=== PATIENT | female | born 1930 | race Caucasian/White ===

== ENCOUNTER → 2016-11-18 | Outpatient (CLI) | payer OTHER | LOC: BHFA 08:45 | PROVIDERS: ATTEND Internal Medicine Cardiovascular Disease | DX: I48.91 Unspecified atrial fibrillation (principal); F03.90 Unspecified dementia, unspecified severity, without behavioral disturbance, psychotic disturbance, mood disturbance, and anxiety | CPT/HCPCS: 82607-90 ==

== ENCOUNTER → 2016-11-22 | Outpatient (CLI) | payer OTHER | LOC: BHFA 16:00 | PROVIDERS: ATTEND Internal Medicine | DX: I48.91 Unspecified atrial fibrillation (principal) ==

== ENCOUNTER → 2016-11-26 | Outpatient (CLI) | payer OTHER | LOC: BHFA 13:15 | PROVIDERS: ATTEND Internal Medicine Cardiovascular Disease | DX: I48.91 Unspecified atrial fibrillation (principal) ==

== ENCOUNTER 2017-10-17 15:11 | Observation (INO) | payer OTHER ==
--- NOTE | 2017-10-17 15:21 | CPEKG ---
Heart Rate: 120 RR Interval: 500 QRSD Interval: 74 QT Interval: 296 QTC Interval: 419 QRS [place]: -40 T Wave [place]: 208 EKG Severity - ABNORMAL ECG - EKG Impression: ATRIAL FIBRILLATION, V-RATE 80-156 EKG Impression: LEFT ANTERIOR FASCICULAR BLOCK EKG Impression: NONSPECIFIC REPOL ABNORMALITY, DIFFUSE LEADS Electronically Signed By: Yaneth Roy 17-Oct-2017 21:44:18
--- NOTE | 2017-10-17 15:25 | EDPHY ---
H & P HPI/ROS: CHIEF COMPLAINT: Rapid heart rate, unsteady gait Limitations: dementia, pt unable to provide any clinical hx HISTORY OF PRESENT ILLNESS: The patient is an 87 y/o female with dementia and atrial fibrillation arriving via EMS from [facility] for evaluation after a neighbor saw her stumbling around the apartment complex. EMS noted she was in rapid atrial fibrillation upon their arrival. She is unable to provide any history to me, but denies pain , dyspnea, difficulty walking, palpitations, rapid heart rate. It's unclear what her baseline mentation is, though EMS was told she lives independently. Demographic sheet that accompanied her shows history of heart and dementia and states she takes a daily baby aspirin. REVIEW OF SYSTEMS: unable to obtain. - Medical/Surgical History PMH: PMH includes: 1. Atrial fibrillation - aspirin 2. Cataracts 3. Dementia 4. Breast cancer - Social History Additional Social History: Lives at [facility] independently. Son is MDPOA, no living will. PCP: Dr. Emiliana Sahni - Physical Exam Exam: General Appearance: Alert, no distress Eyes: Pupils equal and round, no conjunctival pallor or injection ENT, Mouth: Mucous membranes moist Neck: Normal inspection Respiratory: Lungs are clear to auscultation Cardiovascular: Irregularly irregular tachycardic rate and rhythm Gastrointestinal: Abdomen is soft and non- tender Neurological: Alert, confused, nonfocal, unsteady gait requires assistance to walk Skin: Warm and dry, no rash Extremities: Nontender, no pedal edema Psychiatric: Mood and affect normal Constitutional: Initial Vital Signs Temperature (C) 36.5 C 10/17/17 15:11 Heart Rate 111 H 10/17/17 15:11 Respiratory Rate 14 10/17/17 15:11 Blood Pressure 132/78 H 10/17/17 15:11 O2 Sat (%) 92 10/17/17 15:11 O2 Delivery Mode Room Air Allergies/Adverse Reactions: No Known Allergies Allergy (Unverified 10/17/17 15:14) Home Medications: Medication Instructions Recorded Aspirin [Aspirin 81mg (*)] 81 mg PO DAILY 10/17/17 Diltiazem HCl [Diltiazem 24Hr Cd] 180 mg PO DAILY #30 cap.er.24h 10/18/17 Medical Decision Making - Diagnostics Imaging Results: Chest X-Ray 10/17/17 15:24 Impression: Cardiomegaly and pulmonary venous hypertension. No failure. Imaging: I viewed and interpreted images myself ED Course/Re-evaluation: This is an 87 y/o female with dementia who presents for evaluation of weakness and stumbling gait. History limited by patient's dementia, though she denies any complaints currently. Nonfocal neuro exam and rapid atrial fibrillation noted on monitor. Plan for IV, labs, EKG, chest x-ray. RN will attempt to contact patient's facility and [facility] for more information as well. The 12 lead EKG was interpreted by myself. Rapid atrial fibrillation rate 120, ST segment depression in leads V5 and V6. See hard copy and/or "tracemaster" electronic copy for interpretation. RN spoke with patient's son. He reports the patient uses nelson to steady herself at baseline, but today she was much more fatigued and had to sit down on her way back to her apartment. Mental status seems unchanged to him. He confirms her only medication is aspirin and she is not on any anticoagulants. Plan to treat rapid rate with 10mg IV Diltazem bolus and 125mg IV Diltazem drip. Chest x-ray: no pneumonia or CHF, cardiomegaly. Mildly elevated WBC at 14; no clinical evidence of infection, UA ordered. HR 90 -100 after Diltiazem, BP adequate. Consulted with hospitalist service. Dr. Shore accepts admission for atrial fibrillation with RVR. Pt remained stable throughout her ED stay. Critical Care Time: This pt utilized 35 minutes of critical care time by me exclusive of unbundled procedures. Kulwinder spent in obtaining history through EMS and family, ordering reviewed lab/CXR results, medication ordering, serial reassessments after IV Diltiazem and consultation. Organ at risk: heart. - Data Points Laboratory Results: Laboratory Results 10/17/17 15:15 10/17/17 15:15 Medications Given: Discontinued Medications Apixaban (Eliquis) 5 mg PO BID [facility] Stop: 04/15/18 20:59 Last Admin: 10/18/17 08:31 Dose: 5 mg Diltiazem HCl (Cardizem 25 Mg/5 Ml Vial) 10 mg IVP EDNOW ONE Stop: 10/17/17 15:47 Last Admin: 10/17/17 16:47 Dose: 10 mg Diltiazem HCl (Cardizem Er Q24hr) 120 mg PO DAILY [facility] Stop: 04/16/18 10:44 Last Admin: 10/18/17 12:04 Dose: 120 mg Diltiazem HCl 125 mg/ Dextrose 125 mls @ 0 mls/hr IV EDNOW ONE; As Directed PRN Reason: Protocol Stop: 10/17/17 15:47 Last Admin: 10/17/17 16:47 Dose: 125 mls Sodium Chloride (Ns) 500 mls @ 1,000 mls/hr IV EDNOW ONE PRN Reason: Protocol Stop: 10/17/17 16:19 Last Admin: 10/17/17 16:53 Dose: 500 mls Sodium Chloride (Ns) 500 mls @ 250 mls/hr IV ONCE ONE Stop: 10/17/17 19:32 Last Admin: 10/17/17 17:44 Dose: 500 mls Influenza Virus Vaccine Quadrival (Fluarix Quad [id number]) 0.5 ml IM .ONCE ONE Stop: 10/18/17 10:26 Last Admin: 10/18/17 12:26 Dose: Not Given Pneumococcal 13-Valent Conj Vacc (Prevnar 13 Syringe) 0.5 ml IM .ONCE ONE Stop: 10/18/17 10:26 Last Admin: 10/18/17 12:26 Dose: Not Given Departure - Departure Disposition: [facility] Acute Clinical Impression: Atrial fibrillation with RVR Condition: Fair Report Scribed for: Yaneth Roy Report Scribed by: Renetta Tobar Date of Report: 10/17/17 Time of Report: 15:25 Physician Review and Approval Statement: 10/17/17 15:25 Portions of this note were transcribed by a emergency medicine medical director. I personally performed a history, physical exam, medical decision making, and confirmed accuracy of information the transcribed note.
[2017-10-17 15:30] LABS: PLATELET COUNT 155 10^3/uL (150-400)
[2017-10-17 15:39] LABS: INR 0.97 (0.83-1.16); PROTIME(PATIENT) 13.1 SEC (12.0-15.0)
[2017-10-17] MEDS ORDERED: DILTIAZEM 25 MG/5 ML VIAL IVP ONE (15:46)
[2017-10-17] MEDS ORDERED: DILTIAZEM 125 MG in D5W 125 ML IV ONE (15:46)
[2017-10-17] MEDS ORDERED: NS 500 ML IV ONE ×2 (15:50→17:33)
[2017-10-17] MEDS ORDERED: DILTIAZEM 125 MG in D5W 125 ML IV SCH (17:30)
--- NOTE | 2017-10-17 18:12 | GHP ---
[f rep st] HISTORY AND PHYSICAL DATE OF ADMISSION: 10/17/2017 CHIEF COMPLAINT: Rapid atrial fibrillation. HISTORY OF PRESENT ILLNESS: This is an 87-year-old female who is a very poor historian, and was real ly unable to tell me anything for why she was here, presented to the emergency department after she w as noted to have unsteady gait and rapid heart rate. She arrived via EMS from [facility] after her neighbor saw her stumbling around her apartment. Patient denies any chest pain, shortness of breath, or palpitations. She denies any history of heart problems when I asked her, but she is also disorie nted to place and time. PAST MEDICAL HISTORY: Unobtainable, however, the ER report notes atrial fibrillation, cataracts, mem ory issues, breast cancer. PAST SURGICAL HISTORY: Unobtainable. SOCIAL HISTORY: The patient lives independently at [facility]. FAMILY HISTORY: Unobtainable. REVIEW OF SYSTEMS: Comprehensive 10-point review of systems was attempted; however, the patient is a n unreliable historian. PHYSICAL EXAMINATION: VITAL SIGNS: Blood pressure 126/65. Pulse was in the 140s during my exam. R espiratory rate 19. O2 sat 91% on room air. Temperature afebrile. GENERAL: No acute distress. HE AD: Normocephalic, atraumatic. EYES: PERRLA. Sclerae anicteric. MOUTH: Moist mucous membranes. NECK: Supple. No lymphadenopathy. CARDIOVASCULAR: Irregularly-irregular. S1, S2. Tachycardic. No JVD. No lower extremity edema. PULMONARY: Lungs are clear. No wheezes, rales, or rhonchi. AB DOMEN: Soft, nontender, nondistended. No guarding or rebound tenderness. Normoactive bowel sounds. EXTREMITIES: No clubbing or cyanosis. NEURO: Cranial nerves 2 through 12 grossly intact. She is following commands. SKIN: Clear. No rashes. DIAGNOSTICS: Chest x-ray, which I visualized and personally interpreted, showed cardiomegaly, with n o signs of overt heart failure. EKG which I visualized and personally interpreted shows atrial fibri llation, rate 120 beats per minute, the left anterior fascicular block, and diffuse nonspecific repol arization abnormalities. WBC is 14.1, hemoglobin 15.5, hematocrit 44.9, platelets 155. Sodium 141, potassium 4.3, chloride 10 0, BUN 29, creatinine 1, glucose 106. BNP was 7200. Troponin was negative. UA is pending. RPR marisol e in November of 2016 was nonreactive. ASSESSMENT AND PLAN: This is an 87-year-old female, presented from [facility] via emergency medical services after she was found to have an unsteady gait. Found to have: 1. Atrial fibrillation with rapid ventricular response. 2. Mild leukocytosis, without an obvious source of infection. 3. Elevated BNP, consistent with acute heart failure which is most likely diastolic, in the setting of atrial fibrillation with rapid ventricular response. 4. Suspected dementia, however, I have been unable to confirm this by her medical records versus acu te encephalopathy. PLAN: 1. Admit to telemetry. 2. We will start the patient on a diltiazem drip which will be titrated to a heart rate of less than 100. 3. We will start Eliquis. 4. Echocardiogram. 5. Cardiology consultation. 6. We will obtain a urinalysis to evaluate for signs of urinary tract infection. If this is negativ e, further evaluation for infection would be warranted given her overall clinical picture and leukocy tosis. /[id number]/MODL
[2017-10-17] MEDS: APIXABAN 5 MG TAB PO SCH (20:29)
[2017-10-18 03:49] LABS: PLATELET COUNT 127 10^3/uL (150-400)
[2017-10-18] MEDS: APIXABAN 5 MG TAB PO SCH (08:31)
--- NOTE | 2017-10-18 09:23 | ECHO ---
[email or web address] [address] [address] Main: [phone] Fax: Transthoracic Echocardiogram Name: ALONSO THOMAS MR#: [id number] Study Date: 10/18/2017 Study Time: 07:20 AM Date of : 1930 Age: 87 year(s) Height: 170.2 cm (67 in.) Weight: 68.04 kg (150 lb.) BSA: 1.79 m2 Gender: Female Examination: Echo Indication: Rapid afib with elevated bnp Image Quality: Contrast: Requested by: Kun Shore BP: / Heart Rate: Rhythm: Indication: Rapid afib with elevated bnp Procedure Staff Stencil Cutter Machine: Azul Sam RDCS Reading Physician: Kamar Gant Requesting Provider: Conclusions: Normal global systolic LV function. The ejection fraction is estimated to be 55-60 %. The left atrium is mildly to moderately dilated. The right atrium is mildly dilated. Mild to moderate aortic valve regurgitation. Mild tricuspid regurgitation is present. Mildly dilated ascending aorta measuring 4.1 cm. There is no previous echocardiogram for comparison. Measurements: Chambers Valvular Assessment AV/MV Valvular Assessment TV/PV Normal Normal Normal Name Value Range Name Value Range Name Value Range Ao Iona (MM): 3.8 cm (2.2 cm-3.7 AV Vmax: 1.19 m/s (1 m/s-1.7 TR Vmax: 2.51 mm/s ( - ) cm) m/s) TR PGmax: 25 mmHg ( - ) IVSd (2D): 1.0 cm (0.6 cm-1.1 AV maxP mmHg ( - ) syst. PAP: 30 mmHg ( - ) cm) AR (PHT): 495 ms ( - ) LVDd (2D): 5.4 cm (3.9 cm-5.3 MV E Vmax: 0.68 m/s ( - ) cm) LVDs (2D): 4.5 cm (2.1 cm-4 cm) LVPWd (2D): 0.9 cm ( - ) LVEF (MOD4): 49 % (>=55 %) EF Range: 55-60 % Continued Measurements: Chambers Valvular Assessment AV/MV Valvular Assessment TV/PV Name Value Name Value Name Value Patient: ALONSO THOMAS Study Date: 10/18/2017 Page 1 of 2 07:20 AM LADs: 4.1 cm MV E/E' Septal: 9.50 CVP (est.): 5 mmHg LADs Lon.2 cm MV E/E' Lateral: 7.70 LA Area: 24.7 cm2 AR Vmax: 4.80 cm/s Additional Vessels Name Value Ao Ascendin.1 cm Findings: Left Ventricle: Normal size left ventricle. No LV hypertrophy. Normal global systolic LV function. The ejection fraction is estimated to be 55-60 %. Right Ventricle: Normal size right ventricle. Left Atrium: The left atrium is mildly to moderately dilated. Right Atrium: The right atrium is mildly dilated. Mitral Valve: Mild mitral valve leaflet calcification is present. Mild mitral valve regurgitation is present. Aortic Valve: The aortic valve is normal in appearance and function. Mild to moderate aortic valve regurgitation. Tricuspid Valve: The tricuspid valve is normal in appearance and function. Mild tricuspid regurgitation is present. Pulmonic Valve: The pulmonic valve is normal in appearance and function. Aorta: The aorta is normal. Mildly dilated ascending aorta measuring 4.1 cm. Pericardium: No pericardial effusion. (No Signature Object) Patient: ALONSO THOMAS Study Date: 10/18/2017 Page 2 of 2 07:20 AM [id number]
[2017-10-18] MEDS ORDERED: FLU VACC QS 2017-18 (3YR+)/PF 0.5 ML SYR (FLUARIX QUAD) IM ONE (10:25)
[2017-10-18] MEDS ORDERED: PNEUMOC 13-VAL CONJ-DIP CRM/PF 0.5 ML SYR IM ONE (10:25)
[2017-10-18] MEDS ORDERED: DILTIAZEM CD 120 MG CAP PO SCH (10:45)
[2017-10-18 11:15] VITALS: BP 149/90
--- NOTE | 2017-10-18 12:34 | GCON ---
[f rep st] CONSULTATION CARDIOVASCULAR CONSULTATION DATE OF CONSULTATION: 10/18/2017 CHIEF COMPLAINT: Not known. HISTORY OF PRESENT ILLNESS: She is a woman who was admitted to the hospital with atrial fibrillation , with a rapid ventricular response. She was more confused than usual and was stumbling around where she lives at [facility]. She was brought to the emergency room and then admitted for this problem. She has a long history of dementia. She tells me now that she cannot remember why she is in the hosp ital. The records show she had been told years ago that she had atrial fibrillation, and she has bee n cared for with that with rate control. She has not been receiving antiarrhythmic drugs for rhythm control. At this point, she denies shortness of breath, chest pain, orthopnea, PND, dyspnea on exertion, jaw p ain, or arm pain. She has no new weakness. No new slurred speech. She is having no cranial neuropa osiel or complaints of difficulty with hearing or seeing at this time that are new. She has no heada bogdan, stiff neck, or sore throat. She has not had fever, chills, or cough. She has no nausea, vomiti ng, or diarrhea. She is not having arthralgias or hot swollen joints. She is having no hemoptysis. She is having no bleeding anywhere. She has no GI or complaints. She has been taking her medications, and she said she has been feeling fine and feels like she would like to go home. Her cardiac risk factors are negative for treated hypertension. However, she has blood pressures gregory t are significantly elevated in the hospital. Her cardiac risk factors are negative for diabetes guzman litus, hyperuricemia, smoking history, family history of premature coronary disease, obesity, dyslipi demia, or known coronary artery disease. FAMILY HISTORY: She tells me she has no family history of early coronary artery disease. People in her family have had trouble with coronary artery disease, but at advanced ages. REVIEW OF SYSTEMS: A 10-point review of systems negative except as noted above. The validity of the review of systems is difficult to assess because of her poor memory. SURGICAL HISTORY: Status post meniscectomy. Status post iridectomies. MEDICATIONS: Listed in the record. They show that she is taking aspirin, as well as multiple over-t he-counter medications. She takes aspirin at home. SOCIAL HISTORY: She tries to be very active at [facility]. She has a son who is involved in her ca re. She does not smoke. She does not drink significant amounts of alcohol. PHYSICAL EXAMINATION: VITAL SIGNS: Blood pressure 159/90. Earlier blood pressure 142/78. Her hear t rate when she came in was over 100. It is 75 now and irregularly irregular. She is afebrile. Sta tus post iridectomies. NECK: Supple. CARDIOVASCULAR: S1, S2. Systolic murmur at left sternal bor diana. No diastolic murmur. No S3 or S4. No rubs. Irregularly irregular. PULMONARY: Rhonchi bilat erally. No rales, wheezing, or dullness. ABDOMEN: Soft and nontender, without masses. EXTREMITIES : No significant edema. No tenderness. No calf tenderness. No calf swelling. SKIN: Age-related changes. PSYCHIATRIC: She is a very pleasant, comfortable lady, without anxiety or depression appar ent. NEUROLOGIC: She is demented. She is cooperative, and she is pleasant. LABORATORY: Chest x-ray shows some pulmonary hypertension, but no heart failure. Her white count wh en she came in was elevated at 14, with a neutrophil count of 84.9 and lymphs of 7.6. Now today, it is down to 8.42. Her hematocrit is 36.9; it was 44. Her platelet count is 127 today. Sodium 143, p otassium 3.8, chloride 108, CO2 25, BUN 23, creatinine 0.9. Troponins x3 have been negative. BNP wa s 7200. EKG shows AFib, with a rapid ventricular response. I have reviewed her old records, and her echocard iogram in the past showed normal LV systolic function, significant left atrial enlargement, moderate AI, and moderate TR. The ascending aorta was 4.1. Today's echocardiogram shows left atrium mildly t o moderately enlarged. EF is 55%. Fccn-ex-dnquabst AI and mild tricuspid regurgitation. The EKG sh ows atrial fibrillation, left anterior fascicular block, and nonspecific ST-T changes. ASSESSMENT AND PLAN: 1. Atrial fibrillation. 2. Dementia. 3. Possible hypertension. The patient's systolic blood pressures been elevated here. It is hard to believe she does not have h ypertension, but that can be watched as an outpatient to see if she definitively has it or not. Her CHADS-VASc score is either 3 if she has no hypertension or 4 if she has hypertension. If it is 4, robert colon has at least a 4% risk per year of a stroke and would benefit from full anticoagulation. However, in the past, she has seen Dr. Moon of the electrophysiology service, and the decision was made by the family that she did not want to take full anticoagulation, but rather just stick with aspirin alone. When I talked to the patient, that is what she wants to do today. She wants no new medications, raphael bonilla she feels quite well. Some of the notes say she was sort of stumbling about when she was at [facility], and she is demented, so I think there is definitely in her a danger associated with full antic oagulation for her. In light of that, I think we should accept the higher stroke risk and just use a spirin alone given the chances that she could have traumatic bleeding or other injuries. Also, she w ill be very confused about what is happening and her medication intake. Therefore, I would say to jayda olivares aspirin. In the past, Dr. Moon, has talked to the family about the risks and benefits of aspirin versus full anticoagulation, and they have chosen to stay with aspirin and accept the extra risk of s troke. She will continue to do that. Her heart rate is slowing down with some p.o. medication, and she is doing well. There is nothing to suggest that she has other significant pathology causing her rapid ventricular response right now, such as significant pulmonary disease, heart failure, or acute coronary syndrome. There is nothing to suggest pulmonary embolic disease. Her BNP is significantly elevated and yet, there is no congestive heart failure on her chest x-ray, and she is lying flat whil e I am examining her and having absolutely no problem. There are no other findings of fluid overload . Her pulses are full and equal. She is having absolutely no chest pain syndrome whatsoever, so we will follow her and see how she does. At this point in time, she is stabilizing for her heart rhythm. I have talked to the hospitalist, raphael bonilla we both feel that she is safe to be moved to the next level of care whenever that is available for her. That is what she tells me she is very eager to do, and she can be followed as an outpatient by Dr. Moon in our office. Thank you very much for asking us to see this patient. We will follow her with you while she is here . /[id number]/MODL
--- NOTE | 2017-10-18 13:49 | PDIAF ---
- Diagnosis Diagnosis: afib Code Status: Full Code - Medication Management Discharge Medications: Medications to Continue on Transfer Aspirin [Aspirin 81mg (*)] 81 mg PO DAILY 10/17/17 [Last Taken 10/17/17] Diltiazem HCl [Diltiazem 24Hr Cd] 180 mg PO DAILY #30 cap.er.24h 10/18/17 [Last Taken Unknown] Discharge Medications: Refer to the Discharge Home Medication list for PRN reason. - Orders Services needed: Home Care, Registered Nurse, Physical Therapy, Occupational Therapy Home Care Face to Face: I certify that this patient was under my care and that I had the required [id number] encounter meeting the encounter requirements on the discharge day. My findings support the fact that the patient is homebound as defined in Home Care Face to Face Continued: CMS Chapter 7 Medicare Benefits Manual 30.1.1 , The condition of the patient is such that there exists a normal inability to leave home and consequently, leaving home would require a considerable and taxing effort. - Follow Up Care Current Providers and Referrals: Patient,NotPresent [Primary Care Provider] - As per Instructions Igor Grande MD [Medical Doctor] - follow up in 2 weeks
--- NOTE | 2017-10-18 13:55 | PDIAF ---
- Diagnosis Diagnosis: afib Code Status: Full Code - Medication Management Discharge Medications: Medications to Continue on Transfer Aspirin [Aspirin 81mg (*)] 81 mg PO DAILY 10/17/17 [Last Taken 10/17/17] Diltiazem HCl [Diltiazem 24Hr Cd] 180 mg PO DAILY #30 cap.er.24h 10/18/17 [Last Taken Unknown] Discharge Medications: Refer to the Discharge Home Medication list for PRN reason. - Orders Services needed: Home Care, Registered Nurse, Master Credit Collections Analyst, Physical Therapy, Occupational Therapy Home Care Face to Face: I certify that this patient was under my care and that I had the required [id number] encounter meeting the encounter requirements on the discharge day. My findings support the fact that the patient is homebound as defined in Home Care Face to Face Continued: CMS Chapter 7 Medicare Benefits Manual 30.1.1 , The condition of the patient is such that there exists a normal inability to leave home and consequently, leaving home would require a considerable and taxing effort. - Follow Up Care Current Providers and Referrals: Patient,NotPresent [Primary Care Provider] - As per Instructions Igor Grande MD [Medical Doctor] - follow up in 2 weeks
--- NOTE | 2017-10-18 15:02 | ASMTCMCOM ---
CM Note CM Note Notes: Pt admitted with AFIB w/RVR. Pt normally resides at [facility] in [facility]. Spoke with PT & RN; concerns regarding pt's cognition & unsteady gait. PT recommending home with HHC & 24 hr supervision. OT recommending home no needs. Left voicemail for pt's son, Juan Alberto ([phone]), to discuss dc poc; awaiting callback. Spoke with MD; pt medically stable & ready for dc. Met with pt to discuss HHC; pt appears very confused & is unable to discuss Home Health with this Joy Loader. Updated MD; states he discussed dc poc with pt's other son, Truong. Spoke with Truong ([phone]); Truong lives in [place] & states his brother Juan Alberto lives locally & helps care for pt, but Juan Alberto is [place] & cannot be reached; Juan Alberto is aware pt is discharging today & plans to pick pt up tonight at 1900; RN alerted. Truong agreeable to [facility] for pt; requests the [facility] agency be provided with Juan Alberto's phone number to coordinate visits. Verified Juan Alberto's phone number & pt's address, phone number & PCP with Truong. Spoke with Alka ([phone]), at [facility]; willing to accept for RN/PT/SW services. Date Signed: 10/18/2017 03:02 PM Electronically Signed By:Rosario Aguayo RN
[2017-10-18 16:44] VITALS: PULSE 80; RESP 18; TEMP 98.7; O2SAT 91
--- NOTE | 2017-10-18 20:56 | GDS ---
[f rep st] DISCHARGE SUMMARY DISCHARGE DIAGNOSES: 1. Atrial fibrillation with rapid ventricular response. 2. Dementia. HISTORY: This is an 87-year-old female, who presented to the Emergency Department due to unsteadiness. HOSPITAL COURSE: The patient was admitted. Heart rate was initially in the one-teens. She was star riky on diltiazem drip, which improved her heart rate. She was then started on oral diltiazem. Her h eart rate did go up with some ambulation, but I do not think she had her oral diltiazem yet. Physica l therapy has noted that she is unsteady, and requiring 24-hour home care. Physical therapy did evaluate the patient. She was noted to be unsteady, and they recommended 24 mihir r home care. I had an extensive discussion with her son, who feel like they want another trial of be ing at home, and they will they increased her supervision of her. It is possible that her uncontroll ed atrial fibrillation was contributing to her unsteadiness, and I think that the addition of diltiaz em might help that. We will have to see though. She will be discharged home with close followup wit home health, home physical therapy, and social media marketing specialist. Further discussion was had in terms of anticoagulation, and family does not want her to be anticoagul ated, and I agree considering her advanced age and fall risk. /[id number]/MODL
--- NOTE | 2017-10-19 15:03 | ASDISCHSUM ---
Discharge Information Plan Status:Home with Home Health Medically Cleared to Leave:10/18/2017 Discharge Date:10/18/2017 07:34 PM CM D/C Disposition:Home Health Service ADT D/C Disposition:Home Health Service Projected Discharge Date:10/18/2017 05:00 PM Transportation at D/C:Family Discharge Delay Reason: Follow-Up Date:10/18/2017 05:00 PM Discharge Slot: Final Diagnosis:Afib w/RVR Placement Information Referral Type:*Home Health Care Services Referral ID:[id number] Provider Name:[facility] [address] Address 2: City:[place] Selection Factors: State:[place] Patient Contact Information Contact Name:BRITTNEY Relationship:Son Address: Work Phone: City: [facility] Phone: [facility] Code: Email: Financial Information Financial Class: Primary Plan Desc:MEDICARE OUTPATIENT Primary Plan Number:[id number] Secondary Plan Desc: Secondary Plan Number: Assessment Information [facility] CM Progress Note CM Note CM Note Notes: Pt admitted with AFIB w/RVR. Pt normally resides at [facility] in Independent Living. Spoke with PT & RN; concerns regarding pt's cognition & unsteady gait. PT recommending home with HHC & 24 hr supervision. OT recommending home no needs. Left voicemail for pt's son, Juan Alberto ([phone]), to discuss dc poc; awaiting callback. Spoke with MD; pt medically stable & ready for dc. Met with pt to discuss HHC; pt appears very confused & is unable to discuss Home Health with this Boiler Tube Reamer. Updated MD; states he discussed dc poc with pt's other son, Truong. Spoke with Truong ([phone]); Truong lives in [place] & states his brother Juan Alberto lives locally & helps care for pt, but Juan Alberto is [place] a trip [place] & cannot be reached; Juan Alberto is aware pt is discharging today & plans to pick pt up tonight at 1900; RN alerted. Truong agreeable to [facility] for pt; requests the [facility] agency be provided with Juan Alberto's phone number to coordinate visits. Verified Juan Alberto's phone number & pt's address, phone number & PCP with Truong. Spoke with Alka ([phone]), at [facility]; willing to accept for RN/PT/SW services. Date Signed: 10/18/2017 03:02 PM Electronically Signed By:Rosario Aguayo RN Case Management Discharge Plan Note Case Management Discharge Discharge Order Complete? Answers: Yes Patient to Obtain Answers: via Family Medications Transportation Arranged Answers: Family/Friends Transport will Pick (Date 10/18/2017 12:00 AM & Time) Family Notified Answers: Yes Notes: Family to transport Discharge Comments Notes: Patient discharged. Son aware of patient needs/CM. [facility] to follow with RN,PT,SW. Date Signed: 10/19/2017 03:02 PM Electronically Signed By:Kayla Leal LCSW Intervention Information
== END 2017-10-18 19:34 | disposition home health service (06) ==
LOC: EDUNIT# → F2W 17:10
PROVIDERS: ADMIT Family Medicine; ATTEND Internal Medicine
DX: I48.91 Unspecified atrial fibrillation (principal); R26.81 Unsteadiness on feet; F03.90 Unspecified dementia, unspecified severity, without behavioral disturbance, psychotic disturbance, mood disturbance, and anxiety; D72.829 Elevated white blood cell count, unspecified; I27.20 Pulmonary hypertension, unspecified; I51.7 Cardiomegaly; Z79.82 Long term (current) use of aspirin; Z85.3 Personal history of malignant neoplasm of breast; Z23 Encounter for immunization
CPT/HCPCS: 71046; 93005; 93306; 97116; 97161; 97165; G0378; G8978; G8979; G8987; G8988; G8989; 96374

== ENCOUNTER 2018-06-27 12:31 | Observation (INO) | payer OTHER ==
[2018-06-27] MEDS ORDERED: NS 500 ML IV ONE (12:57)
[2018-06-27] MEDS ORDERED: ACTIVATED CHARCOAL 50 GM/240 ML BOTTLE PO ONE (13:00)
--- NOTE | 2018-06-27 13:04 | EDPHY ---
HPI/HX/ROS/PE/MDM Narrative: CHIEF COMPLAINT: "I took too many pills at one time;" unintentional overdose of Diltazem HPI: This is an 87 y/o female with a history of dementia and atrial fibrillation with RVR who arrives with her son for evaluation after she unintentionally took 5 doses of her 180mg doses of Diltazem sometime this morning, her son estimates this was about an hour ago. He called his mother today to reminder her to take her medications and she called back stating she took everything in the pill container. This included 5 days worth of pills including ER 180mg Diltazem, 81mg aspirin, and several supplements. She does not remember this, which her son reports is her baseline mentation. He contacted Poison Control and was advised to come to the ED. She denies any current complaints including chest pain, dyspnea, headache. REVIEW OF SYSTEMS: A comprehensive 10 system review of systems is otherwise negative aside from elements mentioned in the history of present illness. PMH: atrial fibrillation with RVR, dementia, breast cancer Prior medical records reviewed including admission 10/17/17 for rapid afib. SOCIAL HISTORY: Lives independently at [facility]. Son at bedside. PHYSICAL EXAM: General:Patient is alert, in no acute distress. ENT:Eyes are normal to inspection. ENT inspection normal. Neck: Normal inspection. Full range of motion. Respiratory:No respiratory distress. Breath sounds normal bilaterally. Cardiovascular: Irregularly irregular rate and rhythm. Strong peripheral pulses. Normal cap refill. Abdomen:The abdomen is nontender to palpation. There are no peritoneal signs. Back: Normal to inspection. No tenderness to palpation. Skin: Normal color. No rash. Warm and dry. Extremities: Normal appearance. Full range of motion. Neuro: Oriented at baseline. Normal motor function. Normal sensory function. ED Course: This is an 87 y/o female with dementia and atrial fibrillation who presents after an unintentional overdose on her Diltazem about 1 hour ago. She is currently asymptomatic. She has an unremarkable exam apart from irregular heart rate consistent with her permanent atrial fibrillation. Plan for IV, labs, EKG, and admission for observation. 1L IV NS and 50gm PO charcoal ordered. Will consult with Poison Control. Son would like minimal lab testing and other interventions during admission if possible and requests that he is contacted before additional testing is performed. 1314: Consulted with Poison Control. . They agree with plan for admission. Spoke with hospitalist service. Dr. Garrett accepts admission. - Data Points Laboratory Results: Laboratory Results 06/27/18 12:55 06/27/18 12:55 06/27/18 06/27/18 12:55 12:55 WBC 7.06 10^3/uL 10^3/uL (3.80-9.50) RBC 5.10 10^6/uL 10^6/uL (4.18-5.33) Hgb 15.5 g/dL g/dL (12.6-16.3) Hct 46.3 % % (38.0-47.0) MCV 90.8 fL fL (81.5-99.8) MCH 30.4 pg pg (27.9-34.1) MCHC 33.5 g/dL g/dL (32.4-36.7) RDW 14.6 % % (11.5-15.2) Plt Count 204 10^3/uL 10^3/uL (150-400) MPV 11.1 fL fL (8.7-11.7) Neut % (Auto) 50.5 % % (39.3-74.2) Lymph % (Auto) 36.3 % % (15.0-45.0) Grainger % (Auto) 9.1 % % (4.5-13.0) Eos % (Auto) 2.8 % % (0.6-7.6) Baso % (Auto) 1.0 % % (0.3-1.7) Nucleat RBC Rel Count 0.0 % % (0.0-0.2) Absolute Neuts (auto) 3.57 10^3/uL 10^3/uL (1.70-6.50) Absolute Lymphs (auto) 2.56 10^3/uL 10^3/uL (1.00-3.00) Absolute Monos (auto) 0.64 10^3/uL 10^3/uL (0.30-0.80) Absolute Eos (auto) 0.20 10^3/uL 10^3/uL (0.03-0.40) Absolute Basos (auto) 0.07 10^3/uL 10^3/uL (0.02-0.10) Absolute Nucleated RBC 0.00 10^3/uL 10^3/uL (0-0.01) Immature Gran % 0.3 % % (0.0-1.1) Immature Gran # 0.02 10^3/uL 10^3/uL (0.00-0.10) Sodium 142 mEq/L mEq/L (135-145) Potassium 3.8 mEq/L mEq/L (3.3-5.0) Chloride 105 mEq/L mEq/L (97-110) Carbon Dioxide 29 mEq/l mEq/l (22-31) Anion Gap 8 mEq/L mEq/L (6-14) BUN 23 mg/dL mg/dL (7-23) Creatinine 1.1 mg/dL H mg/dL (0.6-1.0) Estimated GFR 47 Glucose 86 mg/dL mg/dL (70-100) Calcium 10.3 mg/dL mg/dL (8.5-10.4) Medications Given: Discontinued Medications Charcoal (Actidose-Aqua) 50 gm PO EDNOW ONE Stop: 06/27/18 13:01 Last Admin: 06/27/18 13:14 Dose: 50 gm Sodium Chloride (Ns) 500 mls @ 0 mls/hr IV EDNOW ONE; Wide Open PRN Reason: Protocol Stop: 06/27/18 12:58 Last Admin: 06/27/18 13:04 Dose: 500 mls General Time Seen by Provider: 06/27/18 12:54 Initial Vital Signs: Initial Vital Signs Temperature (C) 36.9 C 06/27/18 12:39 Heart Rate 81 06/27/18 12:39 Respiratory Rate 18 06/27/18 12:39 Blood Pressure 170/102 H 06/27/18 12:39 O2 Sat (%) 94 06/27/18 12:39 O2 Delivery Mode Room Air Allergies/Adverse Reactions: No Known Allergies Allergy (Verified 06/27/18 12:43) Home Medications: Medication Instructions Recorded Diltiazem HCl [Diltiazem ER] 180 mg PO DAILY 06/27/18 Departure - Departure Disposition: [facility] Clinical Impression: diltazem overdose Overdose Qualifiers: Encounter type: sequela Injury intent: accidental or unintentional Qualified Code(s): T50.901S - Poisoning by unspecified drugs, medicaments and biological substances, accidental (unintentional), sequela Condition: Fair Report Scribed for: Juan Alberto Dominguez Report Scribed by: Renetta Tobar Date of Report: 06/27/18 Time of Report: 12:59 Physician Review and Approval Statement: Portions of this note were transcribed by an ED scribe. I personally performed the history, physical exam, and medical decision making; and confirm the accuracy of the information in the transcribed note.
[2018-06-27 13:06] LABS: PLATELET COUNT 204 10^3/uL (150-400)
[2018-06-27] MEDS ORDERED: ACETAMINOPHEN 325 MG TAB PO PRN (14:18)
--- NOTE | 2018-06-27 15:07 | ASMTCMCOM ---
CM Note CM Note Notes: Pt's chart reviewed for d/c planning. Pt is an 87y/o female who was brought to the ED by his son due to her accidentally taking an overdose of Dilazem and other pills in her pill box (asprin and supplements). Pt does not recall this and son reports this is her baseline mentation. Pt lives independently at [facility]; her son Juan Alberto lives locally and is involved in her care. Last time pt was d/stefani it was recommended that she have HC and [facility] supervision; she was referred to [facility]. It is unknown as to whether these referrals were followed through with. Son, Juan Alberto, will need to be contacted. CM to follow. D/C Plan: TBD Date Signed: 06/27/2018 03:06 PM Electronically Signed By:Gris Hankins
[2018-06-27] MEDS: NS 1,000 ML IV SCH ×2 (15:10→22:20)
[2018-06-27] MEDS ORDERED: ATROPINE SULFATE 1 MG/10 ML SYR IVP PRN (16:41)
--- NOTE | 2018-06-27 17:59 | GHP ---
DATE OF ADMISSION: 06/27/2018 CHIEF COMPLAINT: "I took extra doses of diltiazem." HISTORY OF PRESENT ILLNESS: The patient is a pleasant 87-year-old female with a past medical history of dementia, who currently resides in independent living at [facility], who had corresponded with her son early this morning and reported that she is unintentionally took 5 doses of her diltiazem ex tended release 180 mg. They made contact with Poison Control, who [facility]. In the emergency room, she was treated with activated charcoal, and she is being admitte d for observation overnight. PAST MEDICAL HISTORY: 1. Dementia. 2. Atrial fibrillation. 3. Suspected hypertension. 4. History of breast cancer. PAST SURGICAL HISTORY: Knee surgery. MEDICATIONS: Diltiazem ER 180 mg daily. ALLERGIES: No known drug allergies. REVIEW OF SYSTEMS: CONSTITUTIONAL: No complaints of any fevers or chills. ENT: No report of any r ecent upper respiratory illnesses. CARDIOVASCULAR: No complaints of lightheadedness or syncope. No chest pains. RESPIRATORY: No complaints of shortness of breath or productive cough. GI: No nause a, vomiting, diarrhea, or constipation. : No reports of any difficulty with urination. NEUROLOGI C: No complaints of any headaches or focal weakness. HEMATOLOGIC: No history of any deep vein thro mbosis or pulmonary embolism. PSYCHIATRIC: No history of anxiety or depression. ENDOCRINE: No his tory of polyuria or heat intolerance. SKIN: No new skin rashes. MUSCULOSKELETAL: No focal joint p ains. PHYSICAL EXAM: VITAL SIGNS: Temperature 36.9, blood pressure 170/102, heart rate 81, respirations 1 8, satting 94% on room air. GENERAL: The patient appears comfortable. She is sitting in a chair at the bedside. She is awake, alert, conversant, no acute distress. HEENT: Extraocular movements blanquita ear intact. No scleral icterus is noted. NECK: Supple. No adenopathy appreciated. No thyroid enl argement noted. CHEST: Clear on auscultation with normal respiratory effort. HEART: Irregular. N o murmurs noted. ABDOMEN: Soft, nontender, nondistended. : No Lopez catheter in place. EXTREMI TIES: No significant pitting edema or calf pain with palpation. NEUROLOGIC: No complaints of any h eadaches. Cranial nerves 2 through 12 appear grossly intact with 5/5 strength in extremities. LABS: White blood cell count 7, hemoglobin 15, platelets 204. Sodium is 142, potassium 3.8, chlorid e 105, bicarb 29, BUN 23, creatinine 1.1, glucose of 86. ECG personally read by myself showed normal sinus rhythm with a UT interval of 147. ASSESSMENT AND PLAN: Calcium channel aleisha overdose: Poison Control has been contacted and the ca se #[id number]. Fortunately, thus far, patient seems to be doing reasonably well and has been treated w [facility] activated charcoal at this time. She remains moderately hypertensive at the current time, and we will continue to follow this for now without treatment. She has not displayed any trend toward beco mode bradycardic. I have ordered atropine p.r.n. should her heart rate drop below 45 beats per minut e. Should this develop and become ineffective, consider treating with calcium gluconate, glucagon, o r vasopressors. I did discuss the aggressiveness of her care with her son, who states she has a do n ot resuscitate in place. He states that she is not to be intubated, but should there be any trend in the direction of respiratory failure, he would want to be updated. I did discuss the possibility of a temporary pacemaker being placed, and he stated he would not want to have a temporary pacemaker pl aced, but would be okay with transcutaneous pacing. He was okay with medications to try to increase her heart rate if needed. Dementia: No current medical therapy. We may want to consider looking into her current living situa tion considering this self-error in self-administration of medications. Atrial fibrillation: Patient has been on diltiazem for rate control. Discussions have taken place r egarding anticoagulation in the past, and this has been declined. Hypertension: Suspected. Deep vein thrombosis prophylaxis: Lovenox. Disposition: I will admit her under observation status. /[id number]/MODL
[2018-06-28 08:07] VITALS: BP 151/104
[2018-06-28] MEDS ORDERED: ENOXAPARIN 40 MG/0.4 ML SYR SC SCH (09:00)
--- NOTE | 2018-06-28 15:20 | ASDISCHSUM ---
Discharge Information Plan Status:Home with No Needs Medically Cleared to Leave:06/28/2018 Discharge Date:06/28/2018 11:36 AM CM D/C Disposition:Home, Routine, Self-Care ADT D/C Disposition:Home, Routine, Self-Care Projected Discharge Date:06/28/2018 12:00 PM Transportation at D/C:Family Discharge Delay Reason: Follow-Up Date:06/28/2018 12:00 PM Discharge Slot:1 - 8:01 am - 12:00 noon Final Diagnosis:Diltiazem OD Placement Information Patient Contact Information Contact Name:BRITTNEY Relationship:Son Address: Work Phone: City: [facility] Phone: State/[employer] Code: Email: Financial Information Financial Class:Medicare Advantage Plans Primary Plan Desc:[employer] GOLD MEDICARE Primary Plan Number:[id number] Secondary Plan Desc: Secondary Plan Number: Assessment Information LACE LACE Length of stay for Answers: Less than 1 day current admission Comorbidities - select Answers: Dementia all that apply Other Notes: AFIB with RVR # of Emergency department Answers: 1-2 visits in the last 6 months Score: 5 Date Signed: 06/28/2018 03:19 PM Electronically Signed By:Kayla Leal LCSW [facility] Progress Note CM Note CM Note Notes: Pt's chart reviewed for d/c planning. Pt is an 87y/o female who was brought to the ED by his son due to her accidentally taking an overdose of Dilazem and other pills in her pill box (asprin and supplements). Pt does not recall this and son reports this is her baseline mentation. Pt lives independently at [facility]; her son Juan Alberto lives locally and is involved in her care. Last time pt was d/stefani it [facility]; she was referred to [facility]. It is unknown as to whether these referrals were followed through with. Son, Juan Alberto, will need to be contacted. CM to follow. D/C Plan: TBD Date Signed: 06/27/2018 03:06 PM Electronically Signed By:Gris Hankins Case Management Discharge Plan Note Case Management Discharge Discharge Order Complete? Answers: Yes Patient to Obtain Answers: via Family Medications Transportation Arranged Answers: Family/Friends Transport will Pick (Date 06/28/2018 12:00 PM & Time) Family Notified Answers: Yes Notes: Spoke to son Discharge Comments Notes: Patient has been discharged back to [facility]. Spoke to son who agrees to find a way to manage patient's meds. She has dementia an can not do this task. Her admit was due to OD. This CM suggested getting a medication dispensing box that he could fill weekly, or hiring someone to manage her meds. He agreed that this needed to happen for her to be safe. Date Signed: 06/28/2018 03:18 PM Electronically Signed By:Kayla Leal LCSW Intervention Information
--- NOTE | 2018-06-28 18:01 | GDS ---
DISCHARGE DIAGNOSIS: Unintentional overdose of diltiazem. HISTORY OF PRESENT ILLNESS: The patient is a pleasant 87-year-old female with a past medical history of dementia who currently resides at independent living at [facility], who was admitted after trenton ing 5 doses of her diltiazem extended release 180 mg tablets. The patient's son is quite involved in her care. He had called her to make sure she took her medications, and the patient reported back th at she had taken 5 days' worth at 1 time. She was brought into the emergency room and Poison Control was consulted, who recommended for overnig ht observation. She did receive activated charcoal in the emergency room. Fortunately, she did well overnight. She did become bradycardic at 1 point in time into the upper 40s. However, no atropine was needed to be administered. She did have low normal blood pressures as well. This all resolved t he morning after admission, and the patient was doing reasonably well. I was able to talk with the emili saleh's son at the bedside today and he did visit with Case Management as well. They discussed stra tegies to help with medication compliance and help to ensure she does not take multiple days of medic ations at 1 time. The patient's son states he is looking into alternative methods to monitor her med ication administration. Fortunately, she is just on 1 medication. HOSPITAL COURSE BY PROBLEM: Calcium channel aleisha overdose. At this point in time, she seems to b e resolved. She did not require any medical treatment such as atropine to treat bradycardia through the evening time and there was no significant hypotension. Alternative methods of medication adminis tration are being looked at to ensure she does not take multiple days at 1 time. Dementia: No current medical therapy. Atrial fibrillation: Anticoagulation has been declined in the past. She remains on diltiazem for ra te control. I recommend that she resume this starting tomorrow. Hypertension: Likely with hypertension as well. Monitor with home diltiazem use. DVT prophylaxis: Patient was on Lovenox. DISPOSITION: She appears stable for discharge back to her independent living at [facility] with page colon oversight into her medication administration. DISCHARGE PHYSICAL EXAMINATION: GENERAL: The patient appeared comfortable. She was awake, alert, c onversant, somewhat hard of hearing, in no acute distress. HEART: Irregular rate and rhythm. No mu rmurs are noted. LUNGS: Clear on auscultation with normal respiratory effort. ABDOMEN: Soft, nontender, nondistended. : No Lopez catheter in place. EXTREMITIES: No significant pitting edema or calf pain with palpation. LABORATORY STUDIES: Notable studies: White blood cell count 7, hemoglobin 15, platelets 204. Sodiu m is 143, potassium 3.7, chloride 111, bicarb 27, BUN 18, creatinine 0.8, glucose of 87. DISCHARGE MEDICATIONS: Diltiazem extended release 180 mg daily, to be resumed on 06/29/2018. DISCHARGE INSTRUCTIONS: I have recommended a followup visit with her primary provider in 1-2 weeks' time for reassessment. /[id number]/MODL
--- NOTE | 2018-06-29 20:27 | CPEKG ---
Test Reason : OPEN Blood Pressure : / mmHG Vent. Rate : 078 BPM Atrial Rate : 192 BPM P-R Int : 147 ms QRS Dur : 084 ms QT Int : 413 ms P-R-T Axes : 093 -37 253 degrees QTc Int : 471 ms Atrial fibrillation Inferior infarct, old Lateral leads are also involved Confirmed by Juan Alberto Dominguez ([id number]) on 06/29/2018 8:27:14 PM Referred By: Confirmed By:Juan Alberto Dominguez
== END 2018-06-28 11:36 | disposition home or self-care (01) ==
LOC: F2N 14:37
PROVIDERS: ADMIT Internal Medicine; ATTEND Internal Medicine
DX: T46.1X1A Poisoning by calcium-channel blockers, accidental (unintentional), initial encounter (principal); R03.0 Elevated blood-pressure reading, without diagnosis of hypertension; E86.0 Dehydration; F03.90 Unspecified dementia, unspecified severity, without behavioral disturbance, psychotic disturbance, mood disturbance, and anxiety; I48.91 Unspecified atrial fibrillation
CPT/HCPCS: 93005; 96360; 96361; 97161; 97530; 99285; G0378; G8978; G8979; G8980; J1650; J0461

== ENCOUNTER → 2018-07-03 | Outpatient (CLI) | payer OTHER | LOC: FIMAGING 10:57 | PROVIDERS: ATTEND Physician Assistant | DX: Z13.820 Encounter for screening for osteoporosis (principal); M81.0 Age-related osteoporosis without current pathological fracture ==

== ENCOUNTER 2019-02-12 07:35 | Emergency (ER) | payer OTHER | END 2019-02-12 09:02 | disposition home or self-care (01) ==

== ENCOUNTER 2019-02-17 08:46 | Day surgery (SDC) | payer OTHER | END 2019-02-17 12:00 | disposition home or self-care (01) | LOC: FCATH 08:46 ==